=== PATIENT | female | born 1995 | race Caucasian/White ===

== ENCOUNTER 2023-11-07 14:58 | Outpatient (CLI) | payer OTHER | END 2023-11-07 14:59 | disposition home or self-care (01) | LOC: CSHLAB 14:58 | PROVIDERS: ATTEND Student in an Organized Health Care Education/Training Program | DX: Z01.812 Encounter for preprocedural laboratory examination (principal); N80.103 Endometriosis of bilateral ovaries, unspecified depth | CPT/HCPCS: 84703; 85027; 86850; 86900; 86901 ==